=== PATIENT | male | born 1960 | race Caucasian/White ===

== ENCOUNTER 2017-08-28 17:07 | Emergency (ER) | payer OTHER ==
[~2017-08-28] VITALS: Ht 177.8 cm; Wt 78.9 kg
[2017-08-28] MEDS ORDERED: ROCEPHIN 11 GM/1001 IV (17:43)
[2017-08-28] MEDS ORDERED: CICLOPIROX30 GM TOP (17:43)
== END 2017-08-28 18:45 | disposition home or self-care (01) ==
LOC: ER 17:07
DX: T82.838A Hemorrhage due to vascular prosthetic devices, implants and grafts, initial encounter (principal); Y83.9 Surgical procedure, unspecified as the cause of abnormal reaction of the patient, or of later complication, without mention of misadventure at the time of the procedure; Y92.89 Other specified places as the place of occurrence of the external cause